=== PATIENT | male | born 1985 | race Hispanic/Latino ===

== ENCOUNTER 2020-04-06 15:37 | Emergency (ER) | payer OTHER ==
--- NOTE | 2020-04-06 17:22 | EDPHYS ---
Physician Documentation [facility] Name: Timothy Kaplan Jr Age: 34 yrs Sex: Male : 1985 Arrival Date: 04/06/2020 Time: 15:47 Bed 6 Private MD: ED Physician Anamaria Rogers HPI: 04/06 17:15 This 34 yrs old Male presents to ER via Ambulatory with complaints of ma2 Hemorrhoids. 17:15 The patient presents with hemorroid. Onset: The symptoms/episode began/occurred ma2 gradually, 3 day(s) ago. Associated signs and symptoms: Pertinent negatives: constipation, dysuria, fever. Severity of symptoms: At their worst the symptoms were moderate, in the emergency department the symptoms are unchanged. The patient has not experienced similar symptoms in the past. i offered parenteral medication for pain controlled, he declined . Historical: - Allergies: 15:54 No Known Allergies; ss - Home Meds: 15:54 None [Active]; ss - PMHx: 15:54 None; ss - PSHx: 15:54 None; ss - Immunization history:: Adult Immunizations unknown. - Social history:: Smoking status: Patient/guardian denies using tobacco, but has a distant history of tobacco abuse, Patient/guardian denies using alcohol, street drugs, The patient lives with family. - Family history:: not pertinent. ROS: 17:15 Constitutional: Negative for fever, chills, and weight loss. ma2 17:15 All other systems are negative. Exam: 17:15 Constitutional: This is a well developed, well nourished patient who is awake, alert, ma2 and in no acute distress. Chest/axilla: Normal chest wall appearance and motion. Nontender with no deformity. No lesions are appreciated. Cardiovascular: Regular rate and rhythm with a normal S1 and S2. No gallops, murmurs, or rubs. Normal PMI, no JVD. No pulse deficits. Respiratory: Lungs have equal breath sounds bilaterally, clear to auscultation and percussion. No rales, rhonchi or wheezes noted. No increased work of breathing, no retractions or nasal flaring. Abdomen/GI: Soft, non-tender, with normal bowel sounds. No distension or tympany. No guarding or rebound. No evidence of tenderness throughout. Skin: Warm, dry with normal turgor. Normal color with no rashes, no lesions, and no evidence of cellulitis. MS/ Extremity: Pulses equal, no cyanosis. Neurovascular intact. Full, normal range of motion. 17:15 : Rectal exam: Rectal tone: normal, Stool: normal, hemorrhoid(s), external, painful, are present, not inflammed or thrombosed . Vital Signs: 15:52 BP 148 / 91; Pulse 75; Resp 15; Temp 97.5(TE); Pulse Ox 100% on R/A; Weight 81.65 kg; ss Height 5 ft. 4 in. (162.56 cm); Pain 9/10; 15:52 Body Mass Index 30.90 (81.65 kg, 162.56 cm) ss MDM: 16:43 Patient medically screened. ma2 17:15 Differential diagnosis: external hemorrhoid, vs internal hemorrhoid, vs anal fissure vs ma2 fistula. Data reviewed: vital signs, nurses notes. Counseling: I had a detailed discussion with the patient and/or guardian regarding: the historical points, exam findings, and any diagnostic results supporting the discharge/admit diagnosis, the presence of at least one elevated blood pressure reading (>120/80) during this emergency department visit, the need for outpatient follow up. Response to treatment: the patient's symptoms have markedly improved after treatment. Administered Medications: 17:29 Drug: [place] 10 mg-325 mg 1 tabs Route: PO; ss 17:45 Follow up: Response: No adverse reaction ph Disposition: 04/06/20 17:21 Discharged to Home. Impression: Hemorrhoids and perianal venous thrombosis. - Condition is Stable. - Discharge Instructions: How to Take a Sitz Bath, Hemorrhoids, [id number]. - Prescriptions for lidocaine- prilocaine - apply 1 application by RECTAL route 4 times per day for 8 days for hemorrhoids; 2 tube. Diclofenac Sodium 75 mg Oral Tablet Sustained Release - take 1 tablet by ORAL route 2 times per day; 30 tablet. Hydrocortisone 0.5 % Topical Cream - apply 1 application by TOPICAL route every 12 hours As needed; 30 gram. - Work release form, Medication Reconciliation Form, Thank You Letter, Antibiotic Education, Prescription Opioid Use form. - Follow up: Andrés Henning MD; When: Tomorrow; Reason: Continuance of care. Signatures: Aicha Mchguh RN RN Yarely Mcmanus RN RN ph Anamaria Rogers MD MD ma2 Corrections: (The following items were deleted from the chart) 17:59 17:21 04/06/2020 17:21 Discharged to Home. Impression: Hemorrhoids and perianal venous ph thrombosis. Condition is Stable. Forms are Medication Reconciliation Form, Thank You Letter, Antibiotic Education, Prescription Opioid Use. Follow up: Andrés Henning; When: Tomorrow; Reason: Continuance of care. ma2
--- NOTE | 2020-04-06 17:22 | ER ---
Nurse's Notes [facility] Name: Timothy Kaplan Jr Age: 34 yrs Sex: Male : 1985 Arrival Date: 04/06/2020 Time: 15:47 Bed 6 Private MD: Diagnosis: Hemorrhoids and perianal venous thrombosis Presentation: 04/06 15:52 Chief complaint: Patient states: possible hemorrhoids x weeks. Pt is concerned because ss the pain and swelling have gotten worse every since he came back from a trip. Coronavirus screen: Proceed with normal triage. Patient denies a cough. Patient denies shortness of breath or difficulty breathing. Patient denies measured and/or subjective temperature greater than 100.4F prior to today's visit. Patient denies travel on a cruise ship or to a country the [facility] currently lists as an affected area. Patient denies contact with known and/or suspected case of COVID-19. Ebola Screen: Patient denies exposure to infectious person. Patient denies travel to an Ebola-affected area in the 21 days before illness onset. Initial Sepsis Screen: Does the patient meet any 2 criteria? No. Patient's initial sepsis screen is negative. Does the patient have a suspected source of infection? No. Patient's initial sepsis screen is negative. Risk Assessment: Do you want to hurt yourself or someone else? Patient reports no desire to harm self or others. Onset of symptoms was March 17, 2020. 15:52 Method Of Arrival: Ambulatory ss 15:52 Acuity: ANTHONY 4 ss Historical: - Allergies: 15:54 No Known Allergies; ss - Home Meds: 15:54 None [Active]; ss - PMHx: 15:54 None; ss - PSHx: 15:54 None; ss - Immunization history:: Adult Immunizations unknown. - Social history:: Smoking status: Patient/guardian denies using tobacco, but has a distant history of tobacco abuse, Patient/guardian denies using alcohol, street drugs, The patient lives with family. - Family history:: not pertinent. Screenin:57 Abuse screen: Denies threats or abuse. Denies injuries from another. Nutritional ph screening: No deficits noted. Tuberculosis screening: No symptoms or risk factors identified. Fall Risk None identified. Assessment: 17:15 General: Appears in no apparent distress. comfortable, Behavior is calm, cooperative, ph appropriate for age, Denies fever, feeling ill. Pain: Complains of pain in anus. Neuro: Level of Consciousness is awake, alert, obeys commands, Oriented to person, place, time, situation. Cardiovascular: Capillary refill < 3 seconds in bilateral fingers Patient's skin is warm and dry. Respiratory: Airway is patent Respiratory effort is even, unlabored. GI: Reports hemorrhoids. Derm: Skin is intact, is healthy with good turgor, Skin is pink, warm \T\ dry. Musculoskeletal: Circulation, motion, and sensation intact. Range of motion: intact in all extremities. Vital Signs: 15:52 BP 148 / 91; Pulse 75; Resp 15; Temp 97.5(TE); Pulse Ox 100% on R/A; Weight 81.65 kg; ss Height 5 ft. 4 in. (162.56 cm); Pain 9/10; 15:52 Body Mass Index 30.90 (81.65 kg, 162.56 cm) ED Course: 15:47 Patient arrived in ED. fj1 15:54 Triage completed. ss 15:54 Arm band placed on right wrist. 16:43 Anamaria Rogers MD is Attending Physician. ma2 17:19 Andrés Henning MD is Referral Physician. [facility] 17:55 Yarely Mcmanus, NICOLE is Primary Nurse. ph 17:57 Patient has correct armband on for positive identification. Bed in low position. Call ph light in reach. Side rails up X 1. Pulse ox on. NIBP on. Door closed. Noise minimized. Warm blanket given. 17:57 No provider procedures requiring assistance completed. Patient did not have IV access ph during this emergency room visit. Administered Medications: 17:29 Drug: [place] 10 mg-325 mg 1 tabs Route: PO; ss 17:45 Follow up: Response: No adverse reaction ph Outcome: 17:21 Discharge ordered by . [facility] 17:59 Discharged to home ambulatory. ph 17:59 Condition: good 17:59 Discharge instructions given to patient, Instructed on discharge instructions, follow up and referral plans. medication usage, Demonstrated understanding of instructions, follow-up care, medications, Prescriptions given X 3. 17:59 Patient left the ED. ph Signatures: Aicha Mchugh RN RN Yarely Mcmanus RN RN ph Anamaria Rogers MD MD ma2 Isra Alves fj1
[2020-04-06] MEDS ORDERED: HYDROCODONE/APAP 10/325 TAB ONE (17:35)
[2020-04-06 18:06] VITALS: BP 148/91; TEMP 97.5; O2SAT 100
== END 2020-04-06 17:59 | disposition home or self-care (01) ==
LOC: ER 15:37
DX: K64.5 Perianal venous thrombosis (principal)
CPT/HCPCS: 99283